=== PATIENT | female | born 1985 | race Asian ===

== ENCOUNTER 2016-10-03 11:21 | Inpatient (IN) | payer OTHER ==
[~2016-10-03] VITALS: Ht 165.1 cm; Wt 75.8 kg
[2016-10-03] MEDS ORDERED: LACTATED RINGER'S 1000ML 1,000 ML IV PRN (12:25)
[2016-10-03] MEDS ORDERED: LACTATED RINGER'S 1000ML 500 ML IV PRN ×2 (12:25→18:35)
[2016-10-03] MEDS ORDERED: PATIENT'S ALLERGY INFO NEEDS ENTERED SCH (12:30)
[2016-10-03] MEDS ORDERED: OXYTOCIN 30 UNITS/500ML NSS IV PRN ×2 (12:30→20:15)
[2016-10-03] MEDS ORDERED: PRENTAB26 PO (13:14)
[2016-10-03 13:27] LABS: HEMATOCRIT 32.8 % (37-47); MEAN CORPUSCULAR HEMOGLOBIN 26.9 pg (25-34); MEAN CORPUSCULAR HGB CONC 31.7 g/dl (32-36); MEAN PLATELET VOLUME 11.4 fL (7.4-10.4); PLATELET COUNT 164 K/uL (130-400); RED BLOOD COUNT 3.86 M/uL (4.2-5.4); WHITE BLOOD COUNT 8.98 K/uL (4.8-10.8)
[2016-10-03] MEDS: LACTATED RINGER'S 1000ML 1,000 ML IV SCH ×2 (13:28→18:11)
[2016-10-03 13:46] VITALS: Ht 165.1 cm; Wt 75.8 kg
[2016-10-03] MEDS ORDERED: BUPIVACAINE 0.25% 30 ML VIAL ONE (17:43)
[2016-10-03] MEDS ORDERED: EpHEDrine SULFATE INJ 50 MG/ML AMP ONE (17:44)
[2016-10-03] MEDS ORDERED: FENTANYL CITRATE INJ 50 MCG/1 ML 2 ML VIAL ONE (17:44)
[2016-10-03] MEDS ORDERED: FENTANYL 2MCG/ML ROPIV 1.25MG/ML 100ML BAG EPI ONE (17:45)
[2016-10-03] MEDS ORDERED: NALOXONE HCL INJ 1 MG in SODIUM CHLORIDE 0.9% 1000ML 1,000 ML IV PRN (18:35)
[2016-10-03] MEDS ORDERED: ONDANSETRON INJ 2 MG/ML 2 ML VIAL IV PRN (18:45)
[2016-10-03] MEDS ORDERED: NALOXONE HCL INJ 0.4 MG/1 ML VIAL/CARP IV PRN (18:45)
[2016-10-03] MEDS ORDERED: DiphenhydrAMINE HCL 50 MG/ML VIAL IV PRN (18:45)
[2016-10-03] MEDS ORDERED: NALBUPHINE HCL INJ 10 MG/ML AMP IV PRN (18:45)
[2016-10-03] MEDS ORDERED: FENTANYL 2MCG/ML ROPIV 1.25MG/ML 100ML BAG EPI PRN (18:45)
[2016-10-03] MEDS ORDERED: EpHEDrine SULFATE INJ 50 MG/ML AMP IV PRN (18:45)
--- NOTE | 2016-10-03 20:07 | Anesthesia Procedure Note ---
Anesthesia Epidural Removal Nt Date & Time Oct 03, 2016 at 20:07 Vital Signs Pain Intensity: 1 Notes Mental Status: alert / awake / arousable, participated in evaluation Nausea / Vomiting: adequately controlled Pain: adequately controlled Airway Patency, RR, SpO2: stable & adequate BP & HR: stable & adequate Hydration State: stable & adequate Neuraxial Anesthesia: was administered, sensory block is resolving Anesthetic Complications: no major complications apparent, pt satisfied with anesthetic care Epidural: removed without complications, with tip intact
[2016-10-03] MEDS ORDERED: LANOLIN OINT EXT PRN ×2 (20:15)
[2016-10-03] MEDS ORDERED: ACETAMINOPHEN/CODEINE 300/30MG TAB PO PRN ×2 (20:15)
[2016-10-03] MEDS ORDERED: ACETAMINOPHEN 325 MG TAB PO PRN (20:15)
[2016-10-03] MEDS ORDERED: SUPERCREAM 0.870 % 15GM JAR EXT PRN (20:15)
[2016-10-03] MEDS ORDERED: DIPHTHERIA/TETANUS/PERTUSSIS 0.5 ML SYR/VIAL IM. ONE (20:15)
[2016-10-03] MEDS ORDERED: IBUPROFEN 600 MG TAB PO PRN (20:15)
[2016-10-03] MEDS ORDERED: HYDROCORTISONE ACETATE 25 MG SUPP PR PRN (20:15)
[2016-10-03] MEDS ORDERED: BENZOCAINE 20% AER SPR 82.5 GM CAN EXT PRN (20:15)
--- NOTE | 2016-10-03 22:07 | DELIVERY SUMMARY ---
DATE OF OPERATION: 10/03/2016 FINDINGS: Viable male with Apgars of 8 and 9. Baby delivered spontaneously over a midline second-degree laceration. Cord blood samples obtained. Placenta delivered spontaneously. Laceration repaired with 4-0 Vicryl in a routine fashion. ESTIMATED BLOOD LOSS: 300 mL. LABOR NOTE: The patient is a 31-year-old 3, para 1 with an EDC of September, who is admitted at 40 weeks gestational age for term induction for gestational diabetes, on insulin. Patient transferred to obstetrical care to our practice at 37 weeks. She had been started on insulin by her previous providers and had done well. The patient's blood type is O-positive, antibody negative, rubella immune, hepatitis B negative. She had a negative third trimester beta-strep culture. Upon admission, patient was 1-2 cm dilated, 50% effaced and -2 station. She was started on Pitocin per induction protocol. Practically an hour later, she had artificial rupture of membranes for clear fluid. The patient progressed into a good labor pattern, anesthesia was consulted and epidural was placed. Shortly after placement of the epidural, patient was fully dilated and began her second stage. She pushed for approximately 10 minutes, delivering the viable male infant with description as above. Cord was clamped and cut. Cord blood samples were obtained. Placenta was delivered spontaneously. Laceration was repaired with 4-0 Vicryl in a routine fashion. Estimated blood loss was 300 mL. Sponge and needle count was correct. I attest to the content of the Intraoperative Record and any orders documented therein. Any exceptio ns are noted below.
[2016-10-03 23:20] VITALS: BP 109/61; PULSE 82; TEMP 36.8
[2016-10-04] VITALS (7 sets, daily range): BP systolic 95–111; BP diastolic 57–74; PULSE 68–87; TEMP 36.4–37.1; O2SAT 98
[2016-10-04] MEDS ORDERED: NURSING VERBAL MED ORDER ONE
[2016-10-04] MEDS ORDERED: GUAIFENESIN SUGAR FREE 100 MG/5 ML UDC PO PRN (00:15)
[2016-10-04 07:31] LABS: HEMATOCRIT 30.6 % (37-47)
--- NOTE | 2016-10-04 07:47 | Progress Note ---
Subjective Oct 04, 2016. Subjective conversation w/ patient, physical exam, lab review Ambulation: ambulating normally Voiding: no voiding problems Passing Gas: Yes Diet Tolerance: Regular Diet Lochia: Moderate Feeding Type: Breast Feeding Pain: mild pain improves with meds Comment: Patient was seen at the bedside. No acute event overnight. Review of Systems Constitutional: No fever Respiratory: No shortness of breath Cardiac: No chest pain Breast: No breast lump Abdomen: No nausea, No pain, No vomiting Female : No dysuria, No urinary frequency Denies headache Objective Vital Signs Date Time Temp Pulse Resp B/P Pulse Ox O2 Delivery O2 Flow Rate FiO2 10/04/16 03:25 36.7 76 16 95/60 Room Air 10/03/16 23:20 36.8 82 18 109/61 Room Air Physical Exam General Appearance: WELL-APPEARING, WD/WN, NO APPARENT DISTRESS Respiratory/Chest: chest non-tender, lungs clear, normal breath sounds Cardiovascular: regular rate, rhythm Abdomen: normal bowel sounds, non tender, soft Fundus: Firm, Relation to Umbilicus (2cm below) Extremities: non-tender, no pedal edema, no calf tenderness Laboratory Results Last 24 Hours Test 10/03/16 13:04 10/03/16 18:30 10/04/16 07:17 White Blood Count 8.98 K/uL Red Blood Count 3.86 M/uL Hemoglobin 10.4 g/dL 9.9 g/dL Hematocrit 32.8 % 30.6 % Mean Corpuscular Volume 85.0 fL Mean Corpuscular Hemoglobin 26.9 pg Mean Corpuscular Hemoglobin Concent 31.7 g/dl RDW Standard Deviation 44.7 fL RDW Coefficient of Variation 14.4 % Platelet Count 164 K/uL Mean Platelet Volume 11.4 fL Bedside Glucose 72 mg/dl Medications Current Inpatient Medications Medications (Trade) Dose Ordered Sig/Indira Route Start Time Stop Time Status Last Admin Dose Admin Lactated Ringer's (Lr 1000ml) 1,000 ml @ 125 mls/hr Q8H IV 10/03/16 12:25 10/05/16 12:24 10/03/16 18:11 125 MLS/HR Oxytocin (Pitocin IV) 30 units UD PRN IV 10/03/16 20:15 11/02/16 20:14 Benzocaine (Dermoplast Aero Spr) 1 appln PRN PRN EXT 10/03/16 20:15 11/02/16 20:14 10/04/16 00:26 1 APPLN Cocaine HCl (Supercream 0.870% Cr) BID PRN EXT 10/03/16 20:15 10/17/16 20:14 Hydrocortisone Acetate (Anusol Hc Supp) 25 mg BID PRN AR 10/03/16 20:15 11/02/16 20:14 Lanolin (Lanolin Oint) PRN PRN EXT 10/03/16 20:15 11/02/16 20:14 Prenat Multivit/ [place]/Iron/Folic Ac ( Vitamin Tab) 1 tab DAILY PO 10/04/16 08:00 11/03/16 07:59 Ibuprofen (Motrin Tab) 600 mg Q4H PRN PO 10/03/16 20:15 11/02/16 20:14 10/04/16 05:32 600 MG Acetaminophen (Tylenol Tab) 650 mg Q6H PRN PO 10/03/16 20:15 11/02/16 20:14 Acetaminophen/ Codeine Phosphate (Tylenol w/ Codeine #3 Tab) 1 tab Q4H PRN PO 10/03/16 20:15 11/02/16 20:14 10/04/16 05:33 1 TAB Acetaminophen/ Codeine Phosphate (Tylenol w/ Codeine #3 Tab) 2 tab Q4H PRN PO 10/03/16 20:15 11/02/16 20:14 Bisacodyl (Dulcolax Tab) 5 mg 20 PO 10/04/16 20:00 10/04/16 20:01 Docusate Sodium (coLACE CAP) 100 mg BID PO 10/04/16 08:00 11/03/16 07:59 Ferrous Sulfate (Feosol Tab) 325 mg DAILY PO 10/04/16 08:00 11/03/16 07:59 Guaifenesin (Robitussin Sugar Free Syrup) 100 mg Q3H PRN PO 10/04/16 00:15 11/03/16 00:14 10/04/16 00:27 100 MG Assessment and Plan Post- Day#: 1 Continue Routine Care: A/P: This is a 31 y/o female, , s/p normal vaginal delivery. She is ambulating and clinically stable. Plan: - Vitals signs are reviewed and WNL (Tmax 36.8 ) - Last Hgb is 9.9 - Blood type O+, GBS neg, Rubella Immune - Routine care - Encourage ambulation, monitor and control pain with medication as needed , continue with regular diet as tolerated and monitor lochia - Stool softeners and sitz bath recommended - Encourage breast feeding and educate about breast feeding Resident Physician Supervision Note: I interviewed and examined the patient. Discussed with Dr. Zuniga and agree with findings and plan as documented in the note. Any exceptions or clarifications are listed here: [None] Documented By: José Miguel Russell
[2016-10-04] MEDS: DOCUSATE SODIUM 100 MG CAP PO SCH ×2 (08:02→19:06)
[2016-10-04] MEDS: PRENATAL VITAMIN TAB PO SCH (08:03)
[2016-10-04] MEDS: FERROUS SULFATE 325 MG TAB PO SCH (08:03)
[2016-10-04] MEDS ORDERED: BISACODYL 5 MG TABEC PO SCH (20:00)
[2016-10-05] MEDS: PRENATAL VITAMIN TAB PO SCH (08:24)
[2016-10-05] MEDS: FERROUS SULFATE 325 MG TAB PO SCH (08:24)
[2016-10-05] MEDS: DOCUSATE SODIUM 100 MG CAP PO SCH (08:24)
[2016-10-05 08:25] VITALS: BP 134/77; PULSE 73; TEMP 36.6
--- NOTE | 2016-10-05 09:24 | Progress Note ---
Subjective Oct 05, 2016. Subjective conversation w/ patient, physical exam Ambulation: ambulating normally Voiding: no voiding problems Passing Gas: Yes Diet Tolerance: Regular Diet Lochia: Moderate Feeding Type: Breast Feeding Review of Systems Constitutional: No chills, No fatigue, No fever, No problem reported, No sweats , No weakness, No weight loss Breast: No breast lump, No breast pain, No change in shape, No nipple discharge , No problem reported, No see HPI Abdomen: No GI bleeding, No constipation, No diarrhea, No nausea, No pain, No problem reported, No vomiting Female : No abnormal vaginal bleeding, No dysuria, No hematuria, No incontinence, No problem reported, No see HPI, No urinary frequency, No vaginal discharge Objective Vital Signs Date Time Temp Pulse Resp B/P Pulse Ox O2 Delivery O2 Flow Rate FiO2 10/04/16 23:55 36.8 72 16 111/74 98 Room Air 10/04/16 23:55 Room Air 10/04/16 19:10 37.1 87 18 109/74 Room Air 10/04/16 15:20 36.9 75 18 102/69 Room Air 10/04/16 15:20 Room Air 10/04/16 11:40 Room Air 10/04/16 11:40 36.7 68 20 99/57 Physical Exam General Appearance: WELL-APPEARING, NO APPARENT DISTRESS Abdomen: non tender, soft Fundus: Firm, Non-Tender, Relation to Umbilicus (1 below U) Extremities: no calf tenderness Assessment and Plan Post- Day#: 2 Continue Routine Care: stable course discharge to home follow up in 6 weeks
[2016-10-05] MEDS ORDERED: FRRS300 PO (09:25)
--- NOTE | 2016-10-05 09:26 | Discharge Instructions ---
Discharge Instructions Date of Service Oct 05, 2016. Admission Reason for Admission: Induction Discharge Discharge Diagnosis / Problem: recovery from normal delivery Discharge Goals Goal(s): Routine recovery after delivery Activity Recommendations Activity Limitations: per Instructions/Follow-up section . Instructions / Follow-Up Instructions / Follow-Up ACTIVITY RECOMMENDATIONS: * Gradual return to full activity over the next 2-3 weeks. * No lifting - nothing heavier than baby over the next 2-3 weeks. * Do not engage in vigorous exercise, sexual activity or sports until cleared by your physician. * Do not drive or operate any motorized equipment until cleared by your physician. * You may shower/bathe daily. MEDICATIONS: For discomfort or pain, you may use Acetaminophen (Tylenol), Ibuprofen (Advil), or Naproxen (Aleve) following the package directions. For constipation you may use Colace following the package directions. BREAST CARE: If you are not breast feeding: * Wear a supportive bra 24 hours a day for one to two weeks. * Avoid stimulating your breasts and nipples as much as possible during the first few weeks after delivery. * When taking a shower, have the warm water hit your back, not breasts. * When your breasts feel full, apply ice packs. Usually three to four times a day helps ease the discomfort. * Take a mild pain medication (Tylenol / Motrin) when you are uncomfortable. If breast feeding: * Use breast milk to lubricate nipples. Lansinoh cream may be used for sore nipples. You do not need to remove cream prior to breast feeding. If using a different brand of cream, check the label for directions regarding removal of cream prior to nursing. * Wear a supportive bra. * If having problems with breasts or breast feeding, call a process consultant or your health care provider. EPISIOTOMY CARE: After delivery, if you have an episiotomy (stitches), the following steps will ease discomfort and aid healing. * For the first 24 hours after delivery, place ice packs next to your episiotomy to help reduce swelling. * After the first 24 hour-period, sitz baths, either portable or in the tub, are suggested. A shower with a shower arm sprayed over the episiotomy may be comforting. * Edel care should be done after each voiding and bowel movement. Squirt warm water from a plastic bottle over the perineum (region of the body between the anus and urinary opening) and pat dry. * Use Dermoplast to ease discomfort. Shake container. [place] directly over the episiotomy. Place a Tucks on a clean sanitary pad next to your episiotomy. SPECIAL CARE INSTRUCTIONS: When you are discharged from the hospital, it is important for you to follow the instructions listed below: * During the first week at home, you should be able to care for yourself and your baby. In addition, the usual light household activities are encouraged. * Limit your activities to the way you feel. Do not try to clean the house or move furniture. Be sensible. * If you actively engage in sports and have done so up until the time of your delivery, you may resume these activities as soon as you feel able. This may take up to one month or even longer. Use good judgment. * Continue to take your vitamins for at least six weeks after the of your baby. * Your diet need not be limited unless you were on a special diet before your delivery. Breast-feeding mothers need around 2500 calories per day and at least 64-80 ounces of fluid per day (8 to 10 glasses). * You should eat foods from the four major food groups. Crash diets or fad diets are to be avoided. Eating lean meats, fresh fruits and vegetables, low-fat dairy products, high fiber foods and a regular exercise program, will help you get back to your pre- weight without putting your health at risk. * Constipation is sometimes a problem after delivery. Take a mild laxative as needed. If breast feeding, Milk of Magnesia is acceptable to use. You may use a suppository or Fleets enema if no episiotomy. * A daily shower or tub bath is suggested. Be sure to thoroughly and gently dry the perineum. * A bloody vaginal discharge will usually continue until around four weeks post . A small amount of bleeding may continue for as long as six weeks. Vaginal discharge changes from the bright red bleeding after delivery to pink then brownish and finally yellowish-pink before becoming white and disappearing. * Bleeding may increase with activity. Your first period may come in 4-8 weeks. If you are breast feeding, your period may be delayed even longer. * [place] (sex) can begin whenever both you and your partner feel comfortable and do not have any form of genital infection. It is recommended that you wait at least six weeks for internal and external healing to occur. If you have questions, please talk to your health care practitioner. A condom should be used to prevent infection and . * Foreplay, gentle intercourse and lubrication is very important the first several times to prevent pain. A water-based lubricant such as K-Y jelly or Astroglide may be used. * If you have RH negative blood and your baby is RH positive, you will receive RHOGAM by injection prior to discharge. The nurse will give you a card to keep with you that has the date and place that you received RHOGAM after delivery. * During your care, you had a Rubella screen done to check for the presence of rubella antibodies in your blood. If your test was negative, you will receive a Rubella vaccine prior to discharge. This vaccine may cause a fever, soreness at the injection site and flu-like symptoms. If these symptoms persist, notify your health care practitioner. is not advised for one month after a Rubella vaccine. * Verbalizes understanding of car seat law as reviewed with patient nursing. * Car Seat hand-out given and reviewed with patient by nursing. * Shaken baby information reviewed with patient by nursing. Call you doctor if: * Heavy bleeding (saturating several pads an hour) or passing clots the size of your fist. * A fever >101 degrees F (38.3 degrees C) on two occasions four hours apart and /or chills. * Unusual pain in the pelvic or vaginal areas. * "Baby Blues" lasting longer than two weeks. If you have any questions or concerns, call your health care practitioner at . FOLLOW UP VISIT: * Please call the office at to schedule a 6 week examination. It is important you keep this appointment. It is important for you to make arrangements for either yearly or twice yearly check-ups thereafter. Current Hospital Diet Patient's current hospital diet: Regular OB Diet Discharge Diet Recommended Diet: Regular OB Diet Pending Studies Studies pending at discharge: no Medical Emergencies . Who to Call and When: Medical Emergencies: If at any time you feel your situation is an emergency, please call 911 immediately. . Non-Emergent Contact Non-Emergency issues call your: Mill Control Operator . . "Provider Documentation" section prepared by Carolee Chang. . VTE Core Measure Inpt VTE Proph given/why not?: Treatment not indicated
[2016-10-05 10:34] VITALS: BP_DIAS 77; PULSE 73; TEMP 36.6
== END 2016-10-05 12:45 | disposition home or self-care (01) | DRG 775 ==
LOC: EEVIPCON 12:18 → C.LD 12:18 → C.OBG 10-04 11:54
PROVIDERS: ADMIT Obstetrics & Gynecology; ATTEND Obstetrics & Gynecology
PROC: 10E0XZZ Delivery of Products of Conception, External Approach (ICD-10-PCS; principal; 2016-10-03)
PROC: 0KQM0ZZ Repair Perineum Muscle, Open Approach (ICD-10-PCS; principal; 2016-10-03)
PROC: 3E033VJ Introduction of Other Hormone into Peripheral Vein, Percutaneous Approach (ICD-10-PCS; principal; 2016-10-03)
PROC: 10907ZC Drainage of Amniotic Fluid, Therapeutic from Products of Conception, Via Natural or Artificial Opening (ICD-10-PCS; principal; 2016-10-03)
DX: O24.424 Gestational diabetes mellitus in childbirth, insulin controlled (principal); O70.1 Second degree perineal laceration during delivery; Z37.0 Single live birth; Z3A.40 40 weeks gestation of pregnancy

== ENCOUNTER 2020-04-18 07:49 | Inpatient (IN) ==
[2020-04-18] MEDS ORDERED: OXYTOCIN 30 UNITS/500 ML BAG IV PRN ×3 (07:59→20:40)
[2020-04-18 08:30] LABS: Hematocrit (blood only) 35.4 % (37-47); Hemoglobin 11.3 g/dL (12.0-16.0); Mean Corpuscular Hemoglobin 27.8 pg (25-34); Mean Corpuscular Hgb Conc 31.9 g/dL (32-36); Mean Corpuscular Volume 87.2 fL (80-100); Mean Platelet Volume 11.3 fL (7.4-10.4); Platelet Count 153 K/uL (130-400); RDW Coefficient of Variation 14.3 % (11.5-14.5); RDW Standard Deviation 45.3 fL (36.4-46.3); Red Blood Count 4.06 M/uL (4.2-5.4); White Blood Count 7.85 K/uL (4.8-10.8)
--- NOTE | 2020-04-18 08:31 | History & Physical Report ---
Date of Service April 18, 2020 Assessment & Plan (1) Encounter for induction of labor: PNL: Rh pos, RI, GBS neg, COVID neg Admit, labs, start IV Epidural when desired; anesthesiology consult placed Proceed with induction of labor per Pitocin augmentation protocol. Anticipate Admission and Anticipated Discharge Date Admission Date: April 18, 2020 History of Present Illness Primary Care Provider: NO PCP Dorina Recio is a 35 y/o female currently at 40 and 5/7 WGA with an GARRY 04/13/20 as determined by US #1 who is here for IOL due to postdates. Her was complicated by GDM, diet controlled. + irregular contractions; + movement; - fluid loss; - bloody show Had regular appointments with OB. Blood type: O+ Antibody screen: neg Labs 09/02/19 Rubella: immune VDRL/RPR: neg Gonorrhea: neg Chlamydia: neg HIV: neg HbSAg: neg GBS: negative 03/19/20 COVID-19 negative 04/03/20 Other screens: cf/sma declined Allergies Allergy/AdvReac Type Severity Reaction Status Date / Time No Known Drug Allergies Allergy Verified 04/17/20 10:18 Home Medications Home Medications Medication Instructions Recorded Confirmed Type acetone (urine) test #50 ea 10/03/19 04/17/20 Rx blood sugar diagnostic #150 ea 10/03/19 04/17/20 Rx blood-glucose meter #1 ea 10/03/19 04/17/20 Rx lancets #102 ea 10/03/19 04/17/20 Rx prenat.vits,rogelio,zih-ioxo-[id number] 1 tab PO DAILY 04/18/20 04/18/20 History [ Vitamin] Patient History Medical History History of miscarriage Varicella Surgical History S/P LASIK surgery Family History Mother Diabetes Father Hypertension Social History Smoking Status: Never smoker Hx Alcohol Use: No Hx Substance Use: No Preferred Language: Guyanese Beliefs That Will Affect Care: None marital status: marital status details: Estella Recio (36) [phone] Current Living Situation: Spouse Current Living Situation Comment: lives with spouse, 2 children, in-laws, no pets current occupational status: unemployed current occupation: homemaker Other Information That Helps Us Care for You: No Feels Safe at Home: Yes Safety Concerns: Feels Safe At This Time Assistive Devices: None OB History : G#1: delivered 02/21/12 at 41 wks, lbr length 10 hrs, wt 8#5oz., female, with epidural, delivered in [place], complications: GDM diet controlled G#2: spontaneous 05/08/15 G#3: delivered 10/03/16 at 40 wks, lbr length 5 hrs, wt 8#5oz., male, with epidural, delivered at [facility] by Dr. Quiroz, complications: GDM insulin controlled G#4: current Review of Systems Denies fever or chills. Denies shortness of breath or cough. Denies chest pain. Denies breast pain. Denies dysuria or hematuria. Denies leg pain or leg swelling. Denies headache or changes in vision. Physical Exam Physical Exam: General: Alert, oriented. No acute distress. Cardiac: Regular rate and rhythm, no murmurs/rubs/gallops. Respiratory: Clear to auscultation bilaterally a/p, no wheezes/rales/rhonchi. No increased work of breathing. Symmetrical chest rise. No respiratory distress. Abdomen: Gravid. Vertex position. + heart tones. - palpable contractions. EFW 8-9# Pelvic: Dilation 4 cm; Effacement 70%; Station -[address] Chang External FHT and external uterine monitors used; Category I tracing; moderate FHT variability. Lower Extremities: No lower extremity edema or swelling. No deep calf pain. Salome's negative bilaterally Results & Data ([facility]) Vital Signs (Past 12 Hours) Vital Signs Temp Pulse Resp BP 04/18/20 08:01 36.5 C 20 04/18/20 07:53 79 115/72 Laboratory Results Labs at admission today H.3 Hct: 35.4 WBC: 7.85 Plt: 153 Code Status & VTE Plan VTE Prophylaxis Plan VTE Prophylaxis will be ordered: Yes Supervising Physician Co-Signing Physician Notes Resident Physician Supervision Note: I was present with Dr. Raya during the history and exam. I discussed the case with the resident and agree with the findings and plan as documented in the note. Any exceptions or clarifications are listed here: [None] Documented By: Carolee Villalta MD, FACOG Resident Activity Tracking Resident Involvement: Resident Care Provided Care Provided: OB Delivery
[2020-04-18] MEDS: LACTATED RINGER'S 1,000 ML IV PRN ×3 (09:35→18:36)
[2020-04-18] MEDS ORDERED: BUPIVACAINE 0.25% 30 ML VIAL ONE (15:54)
[2020-04-18] MEDS ORDERED: ePHEDrine sulfate 50 MG/ML AMP ONE (15:54)
[2020-04-18] MEDS ORDERED: SODIUM CHLORIDE 0.9% INJ 10 ML VIAL ONE (15:54)
[2020-04-18] MEDS ORDERED: fentaNYL 2MCG/ML ROPIVACAINE 1.25MG/ML 100 ML BAG EPI ONE (15:55)
[2020-04-18] MEDS ORDERED: fentaNYL citrate 100 MCG/2 ML VIAL ONE (15:55)
[2020-04-18] MEDS ORDERED: NALOXONE HCL 1 MG in SODIUM CHLORIDE 0.9% 1000ML 1,000 ML IV PRN (15:58)
[2020-04-18] MEDS ORDERED: ePHEDrine sulfate 50 MG/ML AMP IV PRN (15:58)
[2020-04-18] MEDS ORDERED: PROMETHAZINE HCL 25 MG in SODIUM CHLORIDE 0.9% 50 ML IV PRN (15:58)
[2020-04-18] MEDS ORDERED: diphenhydrAMINE 50 MG/ML VIAL IV PRN (15:58)
[2020-04-18] MEDS ORDERED: NALOXONE HCL 0.4 MG/1 ML VIAL/CARP IV PRN (15:58)
[2020-04-18] MEDS ORDERED: ONDANSETRON INJ 2 MG/ML 2 ML VIAL IV PRN (15:58)
[2020-04-18] MEDS ORDERED: fentaNYL 2MCG/ML ROPIVACAINE 1.25MG/ML 100 ML BAG EPI PRN (15:58)
--- NOTE | 2020-04-18 15:58 | Anesthesiology Consultation ---
Date of Service April 18, 2020 Assessment & Plan ASA ASA2 Proposed Anesthesia Anesthesia Type: Labor Epidural Risk / Benefits Reviewed With: PT / POA / Parent / Guardian, Accepts Plan and Informed Consent Obtained History Height/Weight Height: 5 ft 6 in Weight: 81.647 kg Allergies Allergy/AdvReac Type Severity Reaction Status Date / Time No Known Drug Allergies Allergy Verified 04/17/20 10:18 Medications Home Medications Medication Instructions Recorded Confirmed Last Taken acetone (urine) test #50 ea 10/03/19 04/17/20 Unknown blood sugar diagnostic #150 ea 10/03/19 04/17/20 Unknown blood-glucose meter #1 ea 10/03/19 04/17/20 Unknown lancets #102 ea 10/03/19 04/17/20 Unknown prenat.vits,rogelio,ohv-pshs-jzylo 1 tab PO DAILY 04/18/20 04/18/20 04/17/20 20:00 [ Vitamin] Active Medications Generic Name Dose Route Start Last Admin Trade Name Freq PRN Reason Stop Dose Admin Lactated Ringer's 1,000 mls @ 125 mls/hr 04/18/20 07:59 04/18/20 16:03 Lr IV 04/20/20 07:58 999 mls/hr .Q8H PRN Administration L&D Protocol Protocol Oxytocin 30 units in 500 mls @ 15 mls/hr 04/18/20 07:59 04/18/20 15:30 Pitocin IV 04/20/20 07:58 0.9 units/hr .Q24H PRN 15 mls/hr Labor Induction/Augmentation Titration Protocol 0.9 UNITS/HR Past Medical History Medical History History of miscarriage Varicella Exercise / Class Metabolic Activity II 4-5 Yardwork/Stairs/Walk up hill Past Family History Family History Mother Diabetes Father Hypertension Past Surgical History Surgical History S/P LASIK surgery Past Anesthesia History No Hx of Anesthesia Complications and No Family Hx of Anesthesia Complications History of PONV No Hx of PONV and No Hx of Motion Sickness Social History Smoking Status: Never smoker Hx Alcohol Use: No Hx Substance Use: No substance use type: does not use Review of Systems denies fever/cough/ colds/ chest pain/ SOB/ CHRISTINE denies CHRISTINE Physical Exam Vital Signs Last Vital Signs Temp 36.6 C 04/18/20 15:00 Pulse 78 04/18/20 16:21 Resp 20 04/18/20 15:00 BP 116/63 04/18/20 16:21 Pulse Ox 98 04/18/20 16:19 ENMT Mouth: no TMJ abnormality and no dentition abnormality Thyromental Distance: > or= 3.5 Finger Breadths Mallampati Class: II Neck neck extension not limited Respiratory normal respiratory effort; no respiratory distress Auscultation: lungs clear to auscultation bilaterally Cardiovascular Rate/Rhythm: regular rate and regular rhythm Neurologic moves all extremities Psychiatric Orientation: alert and oriented x 3 Testing Laboratory Results 04/18/20 08:12
[2020-04-18] MEDS ORDERED: oxyCODONE/ACETAMINOPHEN 5mg/325mg TAB PO PRN (20:40)
[2020-04-18] MEDS ORDERED: ACETAMINOPHEN 325 MG TAB PO PRN (20:40)
[2020-04-18] MEDS ORDERED: DIPHTHERIA/TETANUS/PERTUSSIS 0.5 ML SYR/VIAL IM ONE (20:40)
[2020-04-18] MEDS ORDERED: bisacodyL 10 MG SUPP PR PRN (20:40)
[2020-04-18] MEDS ORDERED: SUPERCREAM 0.870% 15 GM JAR EXT PRN (20:40)
[2020-04-18] MEDS ORDERED: BENZOCAINE 20% AER SPR 82.5 GM CAN EXT PRN (20:40)
[2020-04-18] MEDS ORDERED: HYDROCORTISONE ACETATE 25 MG SUPP PR PRN (20:40)
--- NOTE | 2020-04-18 21:50 | Delivery Summary ---
Vaginal Delivery Summary Date of Service April 18, 2020 Patient is a 35-year-old 4 para 2-0-1-2 female who presents at 40- 5/7 weeks for induction of labor because of postterm . Pitocin augmentation of her labor was begun and membranes were ruptured for clear fluid once an adequate contraction pattern had been established. She received effective epidural analgesia. She progressed to full dilation and pushed effectively over intact perineum for delivery of a viable male . After the head was delivered the rest of the delivered easily. The was then placed on the mother's abdomen for further drying and evaluation. There was vigorous crying and the was moving all 4 limbs. After 1 minute the cord was clamped and cut. The placenta was expressed intact with a three-vessel cord. A first-degree vaginal laceration was repaired with 3-0 chromic in a suture in the usual fashion. bleeding was controlled with dilute Pitocin. estimated blood loss was 200 cc. All counts were correct. Mother and infant were doing well after delivery. MNP Vaginal Delivery Charge Vaginal Delivery Codes: 47044 global code for the antepartum, delivery, and post-
--- NOTE | 2020-04-18 21:55 | Anesthesiology Progress Note ---
Date of Service April 18, 2020 Anesthesia Post Procedure Vital Signs Vital Signs: Temp Pulse Resp BP Pulse Ox 04/18/20 21:49 87 125/84 04/18/20 21:30 76 138/69 04/18/20 21:15 75 18 151/73 H 04/18/20 20:59 82 18 139/81 04/18/20 20:44 74 18 137/83 04/18/20 20:29 73 16 134/78 04/18/20 20:16 36.9 C 75 18 132/75 04/18/20 20:04 85 100 04/18/20 19:59 75 100 04/18/20 19:54 77 99 04/18/20 19:49 73 99 04/18/20 19:48 73 136/91 04/18/20 19:44 73 99 04/18/20 19:39 77 99 04/18/20 19:34 67 99 04/18/20 19:33 76 116/67 04/18/20 19:29 66 98 04/18/20 19:24 70 98 04/18/20 19:19 70 98 04/18/20 19:14 71 98 04/18/20 19:10 36.8 C 18 04/18/20 19:09 65 97 04/18/20 19:04 70 96 04/18/20 19:02 65 125/74 04/18/20 18:59 72 97 04/18/20 18:54 69 96 04/18/20 18:49 71 99 04/18/20 18:47 71 124/76 04/18/20 18:44 76 99 04/18/20 18:39 71 97 04/18/20 18:34 65 97 04/18/20 18:33 70 120/71 04/18/20 18:29 67 99 04/18/20 18:24 68 100 04/18/20 18:19 71 100 04/18/20 18:18 36.7 C 72 20 140/89 04/18/20 18:14 74 99 04/18/20 18:09 66 99 04/18/20 18:04 71 100 04/18/20 18:02 73 118/67 04/18/20 17:59 65 98 04/18/20 17:54 66 98 04/18/20 17:49 73 99 04/18/20 17:48 63 120/68 04/18/20 17:44 67 98 04/18/20 17:39 66 97 04/18/20 17:34 68 98 04/18/20 17:33 68 118/72 04/18/20 17:29 68 95 04/18/20 17:25 73 103/60 04/18/20 17:24 71 97 04/18/20 17:19 83 99 04/18/20 17:18 70 83/45 L 04/18/20 17:14 72 98 04/18/20 17:09 85 98 04/18/20 17:04 70 96 04/18/20 17:03 36.6 C 78 20 106/55 L 04/18/20 16:59 74 97 04/18/20 16:54 70 97 04/18/20 16:49 84 97 04/18/20 16:44 76 96 04/18/20 16:42 76 118/66 94 04/18/20 16:39 82 97 04/18/20 16:37 85 107/61 04/18/20 16:34 78 96 04/18/20 16:33 86 118/68 04/18/20 16:29 87 97 04/18/20 16:28 85 118/65 04/18/20 16:24 86 98 04/18/20 16:21 78 116/63 04/18/20 16:19 87 98 04/18/20 16:18 74 121/59 L 04/18/20 16:15 80 137/58 L 04/18/20 16:14 75 97 04/18/20 16:08 71 99 04/18/20 16:03 73 98 04/18/20 15:58 69 116/66 97 04/18/20 15:00 36.6 C 04/18/20 14:50 69 119/62 04/18/20 14:23 71 118/68 04/18/20 13:03 36.5 C 20 04/18/20 13:02 70 121/75 04/18/20 11:46 74 114/75 04/18/20 09:54 82 120/81 04/18/20 08:01 36.5 C 20 04/18/20 07:53 36.5 C 79 20 115/72 Transfer of Care Handoff Completed per policy Notes Mental Status: alert / awake / arousable and participated in evaluation Patient Amnestic to Procedure: Yes Nausea / Vomiting: adequately controlled Pain: adequately controlled Airway Patency, RR, SpO2: stable & adequate BP & HR: stable & adequate Hydration State: stable & adequate Anesthetic Complications: no major complications apparent and Pt Satisfied with anesthetic care
[2020-04-18] MEDS: DOCUSATE SODIUM 100 MG CAP PO SCH (22:26)
[2020-04-19] MEDS: IBUPROFEN 600 MG TAB PO PRN ×4 (04:06→19:45)
[2020-04-19 06:45] LABS: Hematocrit (blood only) 32.9 % (37-47); Hemoglobin 10.7 g/dL (12.0-16.0); Mean Corpuscular Hemoglobin 28.2 pg (25-34); Mean Corpuscular Hgb Conc 32.5 g/dL (32-36); Mean Corpuscular Volume 86.6 fL (80-100); Mean Platelet Volume 10.9 fL (7.4-10.4); Platelet Count 132 K/uL (130-400); RDW Coefficient of Variation 14.2 % (11.5-14.5); RDW Standard Deviation 44.5 fL (36.4-46.3); White Blood Count 10.78 K/uL (4.8-10.8)
--- NOTE | 2020-04-19 06:53 | Obstetrical Progress Note ---
Date of Service <Ann Raya DO - Last Filed: 04/19/20 07:35> April 19, 2020 Assessment & Plan <Ann Raya DO - Last Filed: 04/19/20 07:35> (1) state: PPD #1 - PNL: Rh pos, RI, GBS neg, COVID neg - Feels well today. Eating well, voiding well, ambulating well. - Pain well controlled with ibuprofen 600mg Q4H PRN - Routine vaginal delivery care -- OOB, ambulation, diet progression as tolerated - Patient does not desire to breastfeed or pump; discussed wearing a tight bra to prevent influx of breast milk. - After discharge will have 6 week follow-up with Dr. Chang. Subjective <Ann Raya DO - Last Filed: 04/19/20 07:35> Dorina Recio is a 35 y/o female who is PPD #1 following spontaneous vaginal delivery at 40 and 5/7 weeks. She reports feeling well overall this morning. Minimal abdominal cramping and 3/10 pain well managed on analgesics. Voiding without dysuria. Tolerating meals overnight without difficulty, nausea, or vomiting. Patient has been able to ambulate some. Has not yet passed gas. Has persistent lochia with some improvement this morning. Currently planning to only bottle feed. Review of Systems Denies fever or chills. Denies shortness of breath or cough. Denies chest pain. Denies breast pain. Denies dysuria. Denies leg pain or leg swelling. Denies headache or changes in vision. Physical Exam <Ann Raya DO - Last Filed: 04/19/20 07:35> General: Alert, oriented. No acute distress. Cardiac: Regular rate and rhythm. No murmurs. Respiratory: Clear to auscultation bilaterally a/p, no wheezes/rales/rhonchi. No increased work of breathing. Symmetrical chest rise. No respiratory distress. Abdomen: Soft, nontender, nondistended. Bowel sounds present. Uterus: Uterine fundus firm, palpable at umbilicus. Lower Extremities: No lower extremity edema or swelling. No deep calf pain. Salome's negative bilaterally. Results & Data ([facility]) <Ann Raya DO - Last Filed: 04/19/20 07:35> Vital Signs (Past 12 Hours) Vital Signs Temp Pulse Pulse Resp BP BP Pulse Ox 04/19/20 04:00 36.6 C 79 18 126/85 04/19/20 00:00 36.8 C 87 18 130/82 04/18/20 22:14 36.8 C 83 16 136/76 04/18/20 22:00 86 142/76 H 04/18/20 21:49 87 16 125/84 04/18/20 21:30 76 138/69 04/18/20 21:15 75 18 151/73 H 04/18/20 20:59 82 18 139/81 04/18/20 20:44 74 18 137/83 04/18/20 20:29 73 16 134/78 04/18/20 20:16 36.9 C 75 18 132/75 04/18/20 20:04 85 100 04/18/20 19:59 75 100 04/18/20 19:54 77 99 04/18/20 19:49 73 99 04/18/20 19:48 73 136/91 04/18/20 19:44 73 99 04/18/20 19:39 77 99 04/18/20 19:34 67 99 04/18/20 19:33 76 116/67 04/18/20 19:29 66 98 04/18/20 19:24 70 98 04/18/20 19:19 70 98 04/18/20 19:14 71 98 04/18/20 19:10 36.8 C 18 04/18/20 19:09 65 97 04/18/20 19:04 70 96 04/18/20 19:02 65 125/74 04/18/20 18:59 72 97 04/18/20 18:54 69 96 Laboratory Results 04/19/20 04/18/20 04/18/20 Range/Units 06:19 10:35 10:35 WBC 10.78 (4.8-10.8) K/uL RBC 3.80 L (4.2-5.4) M/uL Hgb 10.7 L (12.0-16.0) g/dL Hct 32.9 L (37-47) % MCV 86.6 (80-100) fL MCH 28.2 (25-34) pg MCHC 32.5 (32-36) g/dL RDW Std Deviation 44.5 (36.4-46.3) fL RDW Coeff of [place] 14.2 (11.5-14.5) % Plt Count 132 (130-400) K/uL MPV 10.9 H (7.4-10.4) fL COVID-19 Eval [facility] SARS-CoV-2, RNA, NAAT NEGATIVE (NEGATIVE) 04/18/20 Range/Units 08:12 WBC 7.85 (4.8-10.8) K/uL RBC 4.06 L (4.2-5.4) M/uL Hgb 11.3 L (12.0-16.0) g/dL Hct 35.4 L (37-47) % MCV 87.2 (80-100) fL MCH 27.8 (25-34) pg MCHC 31.9 L (32-36) g/dL RDW Std Deviation 45.3 (36.4-46.3) fL RDW Coeff of [place] 14.3 (11.5-14.5) % Plt Count 153 (130-400) K/uL MPV 11.3 H (7.4-10.4) fL COVID-19 Eval Order SARS-CoV-2, RNA, NAAT (NEGATIVE) <Carolee Villalta MD, FACOG - Last Filed: 04/19/20 08:02> Co-Signing Physician Notes Resident Physician Supervision Note: I was present with Dr. Raya during the history and exam. I discussed the case with the resident and agree with the findings and plan as documented in the note. Any exceptions or clarifications are listed here: [None] Documented By: Carolee Villalta MD, FACOG Resident Activity Tracking <Ann Raya, - Last Filed: 04/19/20 07:35> Resident Involvement: Resident Care Provided Care Provided: OB Delivery
[2020-04-19] MEDS: PRENATAL VITAMIN 1 TAB PO SCH (07:42)
[2020-04-19] MEDS: DOCUSATE SODIUM 100 MG CAP PO SCH ×2 (07:42→21:00)
[2020-04-19] MEDS ORDERED: bisacodyL 5 MG TABEC PO SCH (20:00)
--- NOTE | 2020-04-20 06:22 | Obstetrical Progress Note ---
Date of Service <Ann Raya DO - Last Filed: 04/20/20 06:51> April 20, 2020 Assessment & Plan <Ann Raya DO - Last Filed: 04/20/20 06:51> (1) state: PPD #2 - PNL: Rh pos, RI, GBS neg, COVID neg - Feels well today. Eating well, voiding well, ambulating well. - Pain well controlled with ibuprofen 600mg Q4H PRN - Routine care -- continue OOB, ambulation, and full diet as tolerated - After discharge will have 6 week follow-up with Dr. Chang. - Plan for d/c home today. Subjective <Ann Raya DO - Last Filed: 04/20/20 06:51> Dorina Recio is a 35 y/o female who is PPD #2 following spontaneous vaginal delivery after IOL at 40 and 5/7 weeks. She reports feeling well overall this morning. Minimal abdominal cramping and 2/10 pain well managed on analgesics. Voiding without dysuria. Tolerating meals overnight without difficulty, nausea, or vomiting. Patient has been able to ambulate some. Has persistent lochia with significant improvement this morning. Currently bottle feeding. Review of Systems Denies fever or chills. Denies shortness of breath or cough. Denies chest pain. Denies breast pain. Denies dysuria. Denies leg pain or leg swelling. Denies headache or changes in vision. Physical Exam <Ann Raya DO - Last Filed: 04/20/20 06:51> General: Alert, oriented. No acute distress. Cardiac: Regular rate and rhythm. No murmurs. Respiratory: Clear to auscultation bilaterally a/p, no wheezes/rales/rhonchi. No increased work of breathing. Symmetrical chest rise. No respiratory distress. Abdomen: Soft, nontender, nondistended. Bowel sounds present. Uterus: Uterine fundus firm, palpable 1 cm below umbilicus. Lower Extremities: No lower extremity edema or swelling. No deep calf pain. Salome's negative bilaterally. Results & Data ([facility]) <Ann Raya DO - Last Filed: 04/20/20 06:51> Vital Signs (Past 12 Hours) Vital Signs Temp Pulse Pulse Resp BP Pulse Ox 04/19/20 23:25 36.4 C L 70 16 114/75 98 04/19/20 19:00 36.7 C 76 16 122/82 98 Laboratory Results 04/20/20 04/19/20 Range/Units 05:54 06:19 WBC 10.78 (4.8-10.8) K/uL RBC 3.80 L (4.2-5.4) M/uL Hgb 10.9 L 10.7 L (12.0-16.0) g/dL Hct 34.2 L 32.9 L (37-47) % MCV 86.6 (80-100) fL MCH 28.2 (25-34) pg MCHC 32.5 (32-36) g/dL RDW Std Deviation 44.5 (36.4-46.3) fL RDW Coeff of [place] 14.2 (11.5-14.5) % Plt Count 132 (130-400) K/uL MPV 10.9 H (7.4-10.4) fL <José Miguel Russell Jr, MD, FACOG - Last Filed: 04/20/20 06:57> Co-Signing Physician Notes Resident Physician Supervision Note: I was present with Dr. Raay during the history and exam. I discussed the case with the resident and agree with the findings and plan as documented in the note. Any exceptions or clarifications are listed here: Patient desires d/c. Instructions given, f/u in 6 weeks Documented By: José Miguel Russell Jr, MD, FACOG
[2020-04-20 06:33] LABS: Hematocrit (blood only) 34.2 % (37-47); Hemoglobin 10.9 g/dL (12.0-16.0)
[2020-04-20] MEDS: DOCUSATE SODIUM 100 MG CAP PO SCH (08:26)
[2020-04-20] MEDS: PRENATAL VITAMIN 1 TAB PO SCH (08:26)
[2020-04-20 09:23] VITALS: BP 117/78; PULSE 73; TEMP 97.7; O2SAT 95
== END 2020-04-20 11:15 | disposition home or self-care (01) | DRG 807 ==
LOC: 4S1 07:49 → 4S2 22:50